=== PATIENT | male | born 1960 | race Caucasian/White ===

== ENCOUNTER 2018-10-16 15:41 | Inpatient (IN) ==
[2018-10-16] MEDS ORDERED: Acetaminophen 325 MG Tablet PO PRN (22:23)
[2018-10-16] MEDS ORDERED: Bisacodyl 10 MG Supp RECTAL PRN (22:23)
[2018-10-16] MEDS: Dextrose 5%/NaCl 0.45% Inj 1,000 ML IV.CONT SCH (23:18)
[2018-10-17] MEDS: Heparin - SQ 10,000 UNITS/ML Vial SQ SCH ×4 (01:01→23:01)
[2018-10-17 06:20] LABS: Baso # (Auto) 0.1 th/mm3 (0.0-0.2); Baso % (Auto) 0.6 % (0.0-2.0); Eos # (Auto) 0.9 th/mm3 (0.0-0.4); Eos % (Auto) 6.1 % (0.0-4.0); Hemoglobin 12.4 gm/dL (13.0-17.0); Lymph # (Auto) 2.4 th/mm3 (1.0-4.8); Lymph % (Auto) 16.2 % (9.0-44.0); Mean Corpuscular HGB Conc 33.4 % (32.0-36.0); Mean Corpuscular Hemoglobin 30.9 pg (27.0-34.0); Mean Corpuscular Volume 92.7 fL (80.0-100.0); Mean Platelet Volume 9.1 fL (7.0-11.0); Mono % (Auto) 6.7 % (0.0-8.0); Neut # (Auto) 10.5 th/mm3 (1.8-7.7); Neut % (Auto) 70.4 % (16.0-70.0); Platelet Count 205 th/mm3 (150-450); Red Blood Count 3.99 mil/mm3 (4.50-5.90); Red Cell Distribution Width 15.8 % (11.6-17.2); White Blood Count 14.9 th/mm3 (4.0-11.0)
[2018-10-17 06:37] LABS: Chloride 109 meq/L (98-107); Potassium 3.7 meq/L (3.5-5.1); Sodium 142 meq/L (136-145)
[2018-10-17 06:39] LABS: Calcium 8.4 mg/dL (8.5-10.1)
[2018-10-17 06:40] LABS: Anion Gap 5 meq/L (5-15); Blood Urea Nitrogen 17 mg/dL (7-18); Carbon Dioxide 27.6 meq/L (21.0-32.0); Glucose,Random 85 mg/dL (74-106)
[2018-10-17 06:43] LABS: Glomerular Filtration Rate Greater Than 89 mL/min (>89)
[2018-10-17] MEDS ORDERED: Lactobacillus Acidophilus/L. Spores Tablet PO SCH (09:00)
[2018-10-17] MEDS ORDERED: AMLODIPINE VALSARTAN PO SCH (09:00)
[2018-10-17] MEDS: amLODIPine 5 MG Tablet PO SCH (09:58)
[2018-10-17] MEDS: Senna/Docusate Sodium 8.6/50 MG Tablet PO SCH ×2 (09:59→10:09)
[2018-10-17] MEDS: diazePAM 5 MG Tablet PO SCH ×2 (09:59→22:58)
[2018-10-17] MEDS: Finasteride 5 MG Tablet PO SCH (09:59)
--- NOTE | 2018-10-17 10:30 | P.HPIM ---
History of Present Illness Primary Care Physician: Waldo Vaughn DO Chief Complaint: Altered mental status change, significant aggressiveness History of Present Illness: 58-year-old man with history of long-standing severe mental retardation was taken to [facility] ED yesterday for evaluation of aggressive behavior per patient's mother. She states over the past several days to a week he has been more aggressive toward people around him and also hurting himself. Patient is unable to provide any history. While in the ED, patient was found to have lung opacities with significant leukocytosis and bandemia for which he was started on IV antibiotics. Apparently, 10 days ago patient has had teeth pulled out by the dentist, and thereafter that he started to become more aggressive. Review of Systems ROS Unobtainable: unobtainable due to mental condition and unobtainable due to mental status PMFSH Social History Social History Substance History: No History of Abuse Second Hand Smoke Exposure: No Smoking Status: Never smoker How Often Do You Have a Drink Containing Alcohol: Never Medications and Allergies Allergies Allergy/AdvReac Type Severity Reaction Status Date / Time erythromycin base Allergy Severe RASH Unverified 04/09/17 19:18 haloperidol Allergy Severe EPS Unverified 04/09/17 19:18 Home Medications Medication Instructions Recorded Confirmed Type L. gasseri-B. bifidum-B longum 1 tab PO HS 10/16/18 10/16/18 History [Probiotic Colon Support] amlodipine-valsartan 1 tab PO DAILY 10/16/18 10/16/18 History cholecalciferol (vitamin D3) 1 tab PO HS 10/16/18 10/16/18 History [Vitamin D3] diazepam 1 tab PO BID 10/16/18 10/16/18 History finasteride 1 tab PO DAILY 10/16/18 10/16/18 History tamsulosin 0.4 mg PO DAILY 10/17/18 10/17/18 History Active Medications: Active Medications Acetaminophen (Tylenol) 650 mg PO Q4H PRN PRN Reason: Temp > 100.4 Al Hydroxide/Mg Hydroxide (Milk Of Magnesia Liq) 30 ml PO Q12H PRN PRN Reason: Mild Constipation Amlodipine Besylate (Norvasc) 5 mg PO DAILY [facility] Last Admin: 10/17/18 09:58 Dose: 5 mg Bisacodyl (Dulcolax Supp) 10 mg RECTAL DAILY PRN PRN Reason: SEVERE CONSITIPATION Diazepam (Valium) 5 mg PO BID [facility] Last Admin: 10/17/18 09:59 Dose: 5 mg Finasteride (Proscar) 5 mg PO DAILY [facility] Last Admin: 10/17/18 09:59 Dose: 5 mg Heparin Sodium (Porcine) (Heparin Inj) 5,000 units SQ Q8H [facility] Last Admin: 10/17/18 05:48 Dose: 5,000 units Dextrose/Sodium Chloride (D5w/1/2 Ns Inj) 1,000 mls @ 75 mls/hr IV.CONT .[id number] [facility] Last Admin: 10/16/18 23:18 Dose: 75 mls/hr Levofloxacin/Dextrose (Levaquin 500 Mg Premix Inj) 500 mg in 100 mls @ 100 mls/ hr IV.SIG Q24H [facility] Lactobacillus Acidophilus (Lactinex) 1 tab PO [facility] Lactulose (Lactulose Liq) 30 ml PO DAILY PRN PRN Reason: SEVERE CONSITIPATION Lorazepam (Ativan Inj) 1 mg IV.PUSH Q4H PRN PRN Reason: AGITATION Last Admin: 10/17/18 01:03 Dose: 1 mg Senna/Docusate Sodium (Silvia-Colace) 1 tab PO DAILY [facility] Last Admin: 10/17/18 10:09 Dose: 1 tab Sennosides (Senokot) 17.2 mg PO Q12H PRN PRN Reason: Moderate Constipation Sodium Chloride (Ns Flush) 2 ml IV.FLUSH BID [facility] Last Admin: 10/17/18 09:58 Dose: 2 ml Sodium Chloride (Ns Flush) 2 ml IV.FLUSH PRN PRN PRN Reason: FLUSH AFTER USING IV ACCESS Valsartan (Diovan) 320 mg PO DAILY [facility] Last Admin: 10/17/18 10:04 Dose: 320 mg Vitamin D (Vitamin D3) 1,000 unit PO HS [facility] Physical Exam Vital signs: Vital Signs 10/16/18 23:24 10/17/18 00:00 10/17/18 00:30 Temperature 97.4 F L Pulse Rate 89 101 H 95 H Respiratory Rate 22 Blood Pressure 118/64 Pulse Oximetry 95 10/17/18 04:00 10/17/18 05:18 10/17/18 08:00 Temperature 97.2 F L 96 F L Pulse Rate 77 77 105 H Respiratory Rate 20 18 20 Blood Pressure 95/57 L 106/84 137/72 Pulse Oximetry 96 96 Intake & Output 10/16/18 10/17/18 10/17/18 18:59 06:59 18:59 Intake Total 50 / 50 120 / 120 Balance 50 / 50 120 / 120 Weight 62 kg Intake: Oral 50 / 50 120 / 120 Other: # Urine Diapers 2 Date of Last Bowel Movement 10/16/18 # Bowel Movements 1 # Incontinent Bowel Movements 1 Narrative: GENERAL: NAD with restraint to upper extremities SKIN: Warm and dry. HEAD: Atraumatic. Normocephalic. EYES: Pupils equal and round. No scleral icterus. No injection or drainage. ENT: No nasal bleeding or discharge. Mucous membranes pink and moist. NECK: Trachea midline. No JVD. CARDIOVASCULAR: Regular rate and rhythm. RESPIRATORY: No accessory muscle use. Clear to auscultation. Breath sounds decreased bilaterally. GASTROINTESTINAL: Abdomen soft, non-tender, nondistended. Hepatic and splenic margins not palpable. MUSCULOSKELETAL: Extremities without clubbing, cyanosis, or edema. No obvious deformities. NEUROLOGICAL: No obvious cranial nerve deficits. Motor grossly within normal limits. Five out of 5 muscle strength in the arms and legs. PSYCHIATRIC: Severe mental retardation Results Labs CBC & Chem 7: 10/17/18 04:45 10/17/18 04:45 Caprini VTE Risk Assessment Caprini VTE Risk Assessment: Moderate/High Risk (score >= 2) Caprini Risk Assessment Model: Point Value = 1 Point Value = 2 Point Value = 3 Point Value = 5 Age 41-60 Minor surgery BMI > 25 kg/m2 Swollen legs Varicose veins or History of unexplained or recurrent spontaneous Oral contraceptives or hormone replacement Sepsis (< 1 month) Serious lung disease, including pneumonia (< 1 month) Abnormal pulmonary function Acute myocardial infarction Congestive heart failure (< 1 month) History of inflammatory bowel disease Medical patient at bed rest Age 61-74 Arthroscopic surgery Major open surgery (> 45 min) Laparoscopic surgery (> 45 min) Malignancy Confined to bed (> 72 hours) Immobilizing plaster cast Central venous access Age >= 75 History of VTE Family history of VTE Factor V Leiden Prothrombin [id number] Lupus anticoagulant Anticardiolipin antibodies Elevated serum homocysteine Heparin-induced thrombocytopenia Other congenital or acquired thrombophilia Stroke (< 1 month) Elective arthroplasty Hip, pelvis, or leg fracture Acute spinal cord injury (< 1 month) Prophylaxis Regimen: Total Risk Factor Score Risk Level Prophylaxis Regimen 0-1 Low Early ambulation 2 Moderate Order ONE of the following: *Sequential Compression Device (SCD) *Heparin 5000 units SQ BID 3-4 Higher Order ONE of the following medications: *Heparin 5000 units SQ TID *Enoxaparin/Lovenox 40 mg SQ daily (WT < 150 kg, CrCl > 30 mL/min) *Enoxaparin/Lovenox 30 mg SQ daily (WT < 150 kg, CrCl > 10-29 mL/min) *Enoxaparin/Lovenox 30 mg SQ BID (WT < 150 kg, CrCl > 30 mL/min) AND/OR *Sequential Compression Device (SCD) 5 or more Highest Order ONE of the following medications: *Heparin 5000 units SQ TID (Preferred with Epidurals) *Enoxaparin/Lovenox 40 mg SQ daily (WT < 150 kg, CrCl > 30 mL/min) *Enoxaparin/Lovenox 30 mg SQ daily (WT < 150 kg, CrCl > 10-29 mL/min) *Enoxaparin/Lovenox 30 mg SQ BID (WT < 150 kg, CrCl > 30 mL/min) AND *Sequential Compression Device (SCD) Assessment and Plan Plan 58-year-old man with Sepsis: Elevated WBC and heart rate greater than 90; source of infection pneumonia from the right lung base Currently on IV Levaquin pending culture report Community-acquired pneumonia Aspiration pneumonia? Secondary to recent dental extractions Chest x-ray noted with finding of minimal parenchymal changes in the right base. Currently on IV Levaquin Monitor culture Keep oxygen saturation above 92% Leukocytosis with bandemia Secondary to above infectious process, continue to monitor Encephalopathy-mostly metabolic secondary to above infectious process Treat as an above Mental retardation Chronic Hypertension, BPH and other chronic medical conditions Continue outpatient medications H&P: Quality VTE Deep Vein Thrombosis/Pulmonary Embolism Present on Admission: No
[2018-10-17] MEDS: Dextrose 5%/NaCl 0.45% Inj 1,000 ML IV.CONT SCH (13:55)
[2018-10-17] MEDS: Levofloxacin 500 mg Premix Inj 500 MG/100 ML PIGGYBACK IV.SIG SCH (17:51)
[2018-10-17] MEDS ORDERED: [UNRECOGNIZED DRUG - OTHER] PO SCH (21:00)
[2018-10-17] MEDS ORDERED: CHOLECALCIFEROL PO SCH (21:00)
[2018-10-17] MEDS: Lactobacillus Acidophilus/L. Spores Tablet PO SCH (22:58)
[2018-10-18] MEDS: Dextrose 5%/NaCl 0.45% Inj 1,000 ML IV.CONT SCH ×2 (05:50→13:52)
[2018-10-18] MEDS: Heparin - SQ 10,000 UNITS/ML Vial SQ SCH ×3 (05:51→22:12)
[2018-10-18] MEDS: diazePAM 5 MG Tablet PO SCH ×2 (09:56→20:56)
[2018-10-18] MEDS: amLODIPine 5 MG Tablet PO SCH (09:56)
--- NOTE | 2018-10-18 11:54 | P.PNIM ---
Subjective Interval history: Follow-up sepsis/community-acquired pneumonia/metabolic encephalopathy October 18, 2018patient seen and examined, alert however nonverbal. Per mom' s and dad's account patient is still not back at his baseline. Afebrile. No acute event overnight. Yesterday a Bhakta was placed secondary to urinary retention. Physical Exam Vital signs: Vital Signs 10/17/18 12:00 10/17/18 16:00 10/17/18 20:00 Temperature 97.3 F L 97 F L 97.7 F Pulse Rate 101 H 91 H 92 H Respiratory Rate 20 20 22 Blood Pressure 96/66 L 130/91 H 130/78 Pulse Oximetry 97 100 92 L 10/17/18 21:44 10/18/18 00:00 10/18/18 00:05 Temperature 98.3 F 97.7 F Pulse Rate 88 83 95 H Respiratory Rate 20 22 Blood Pressure 118/72 106/57 L Pulse Oximetry 96 94 L 10/18/18 08:00 Temperature 97 F L Pulse Rate 85 Respiratory Rate 20 Blood Pressure 114/71 Pulse Oximetry Intake & Output 10/17/18 10/18/18 10/18/18 18:59 06:59 18:59 Intake Total 1400 / 1400 1240 / 1240 Output Total 500 / 500 300 / 300 Balance 900 / 900 940 / 940 Weight 62 kg 62.5 kg Intake: IV 1100 / 1100 1000 / 1000 D5W/1/2 NS Inj 1,000 ML @ 75 1000 / 1000 1000 / 1000 mls/hr IV.CONT .[id number] [facility] Rx# :[id number] Levaquin 500 mg Premix Inj 500 100 / 100 mg In 100 ml @ 100 mls/hr IV. SIG Q24H [facility] Rx#:[id number] Oral 300 / 300 240 / 240 Output: Urine Amount (Catheter) 500 / 500 300 / 300 Indwelling Urethral Catheter 500 / 500 300 / 300 Other: Date of Last Bowel Movement 10/17/18 10/17/18 # Bowel Movements 1 # Incontinent Bowel Movements 1 Weight On Admission 62 kg Narrative: GENERAL: NAD with restraint to upper extremities SKIN: Warm and dry. HEAD: Atraumatic. Normocephalic. EYES: Pupils equal and round. No scleral icterus. No injection or drainage. ENT: No nasal bleeding or discharge. Mucous membranes pink and moist. NECK: Trachea midline. No JVD. CARDIOVASCULAR: Regular rate and rhythm. RESPIRATORY: No accessory muscle use. Clear to auscultation. Breath sounds decreased bilaterally. GASTROINTESTINAL: Abdomen soft, non-tender, nondistended. Hepatic and splenic margins not palpable. MUSCULOSKELETAL: Extremities without clubbing, cyanosis, or edema. No obvious deformities. NEUROLOGICAL: No obvious cranial nerve deficits. Motor grossly within normal limits. Five out of 5 muscle strength in the arms and legs. PSYCHIATRIC: Severe mental retardation Urinary Catheter Management Indwelling Urethral Catheter: Cath placed during this visit: yes Reason for continuing: Acute urinary retention Insertion date: 10/17/18 Insertion time: 17:41 Results Labs CBC & Chem 7: 10/17/18 04:45 10/17/18 04:45 Assessment and Plan Plan 58-year-old man with Sepsis: Elevated WBC and heart rate greater than 90; source of infection pneumonia from the right lung base Currently on IV Levaquin pending culture report Community-acquired pneumonia Aspiration pneumonia? Secondary to recent dental extractions Currently on IV Levaquin Monitor culture Keep oxygen saturation above 90% Leukocytosis with bandemia Secondary to above infectious process, continue to monitor Encephalopathy-mostly metabolic secondary to above infectious process Treat as an above Mental retardation Chronic Hypertension, BPH and other chronic medical conditions Continue outpatient medications Urinary retention Bhakta placed October 17, 2018, continue to monitor output Progress Note: Quality VTE Deep Vein Thrombosis/Pulmonary Embolism Present on Admission: No
--- NOTE | 2018-10-18 14:43 | P.DCO ---
Home Health Nursing Order: Nursing assessment with vital signs Case Management Consult Case Management Consult-Home Health: Yes I have seen patient Storm Cooper on 10/18/18. My clinical findings support the need for the requested home health care services because: Limited mobility due to disease progression, Impaired cognition/judgement and Infection with risk of complications I certify that my clinical findings support that this patient is homebound because: Impaired cognitive ability/safety
[2018-10-18] MEDS: Levofloxacin 500 mg Premix Inj 500 MG/100 ML PIGGYBACK IV.SIG SCH (17:49)
[2018-10-18] MEDS: Lactobacillus Acidophilus/L. Spores Tablet PO SCH (20:56)
[2018-10-19] MEDS: Dextrose 5%/NaCl 0.45% Inj 1,000 ML IV.CONT SCH ×2 (03:50→17:17)
[2018-10-19] MEDS: Heparin - SQ 10,000 UNITS/ML Vial SQ SCH ×3 (06:44→21:49)
[2018-10-19 07:42] LABS: Baso # (Auto) 0.1 th/mm3 (0.0-0.2); Baso % (Auto) 1.2 % (0.0-2.0); Eos # (Auto) 0.7 th/mm3 (0.0-0.4); Eos % (Auto) 8.4 % (0.0-4.0); Hemoglobin 11.6 gm/dL (13.0-17.0); Lymph # (Auto) 2.2 th/mm3 (1.0-4.8); Lymph % (Auto) 24.3 % (9.0-44.0); Mean Corpuscular HGB Conc 33.1 % (32.0-36.0); Mean Corpuscular Hemoglobin 30.5 pg (27.0-34.0); Mean Corpuscular Volume 92.1 fL (80.0-100.0); Mean Platelet Volume 9.3 fL (7.0-11.0); Mono # (Auto) 0.7 th/mm3 (0.0-0.9); Mono % (Auto) 7.4 % (0.0-8.0); Neut # (Auto) 5.2 th/mm3 (1.8-7.7); Neut % (Auto) 58.7 % (16.0-70.0); Platelet Count 185 th/mm3 (150-450); Red Cell Distribution Width 15.1 % (11.6-17.2); White Blood Count 8.9 th/mm3 (4.0-11.0)
[2018-10-19 08:07] LABS: Chloride 111 meq/L (98-107); Potassium 3.3 meq/L (3.5-5.1); Sodium 143 meq/L (136-145)
[2018-10-19 08:11] LABS: Albumin 2.7 g/dL (3.4-5.0); Anion Gap 7 meq/L (5-15); Blood Urea Nitrogen 8 mg/dL (7-18); Carbon Dioxide 24.7 meq/L (21.0-32.0); Glucose,Random 92 mg/dL (74-106)
[2018-10-19 08:14] LABS: Alanine Aminotransferase 30 U/L (12-78); Aspartate Aminotransferase 24 U/L (15-37); Glomerular Filtration Rate Greater Than 89 mL/min (>89)
[2018-10-19 08:16] LABS: Total Protein 5.8 g/dL (6.4-8.2)
[2018-10-19 08:17] LABS: Alkaline Phosphatase 123 U/L (45-117)
[2018-10-19] MEDS: Finasteride 5 MG Tablet PO SCH (08:42)
[2018-10-19] MEDS: amLODIPine 5 MG Tablet PO SCH (08:42)
[2018-10-19] MEDS: diazePAM 5 MG Tablet PO SCH ×2 (08:43→20:19)
--- NOTE | 2018-10-19 10:30 | P.PNIM ---
Subjective Interval history: Follow-up sepsis/community-acquired pneumonia/metabolic encephalopathy/mental retardation October 19, 2018patient seen and examined, per parents account he is back to his baseline, taking more p.o. Afebrile. Physical Exam Vital signs: Vital Signs 10/18/18 12:50 10/18/18 16:00 10/18/18 20:00 Temperature 97.8 F 98.5 F Pulse Rate 93 H 83 Respiratory Rate 20 20 18 Blood Pressure 114/79 112/81 Pulse Oximetry 95 92 L 10/18/18 21:12 10/19/18 00:18 Temperature 96.9 F L 98.1 F Pulse Rate 80 79 Respiratory Rate 24 22 Blood Pressure 100/72 112/73 Pulse Oximetry 95 96 Intake & Output 10/18/18 10/19/18 10/19/18 18:59 06:59 18:59 Intake Total 900 / 900 1100 / 1100 Output Total 700 / 700 1000 / 1000 Balance 200 / 200 100 / 100 Intake: IV 600 / 600 1100 / 1100 D5W/1/2 NS Inj 1,000 ML @ 75 600 / 600 1000 / 1000 mls/hr IV.CONT .[id number] [facility] Rx# :[id number] Levaquin 500 mg Premix Inj 500 100 / 100 mg In 100 ml @ 100 mls/hr IV. SIG Q24H [facility] Rx#:[id number] Oral 300 / 300 Output: Urine Amount (Catheter) 700 / 700 1000 / 1000 Indwelling Urethral Catheter 700 / 700 1000 / 1000 Other: Date of Last Bowel Movement 10/18/18 # Bowel Movements 1 Narrative: GENERAL: NAD SKIN: Warm and dry. HEAD: Atraumatic. Normocephalic. EYES: Pupils equal and round. No scleral icterus. No injection or drainage. ENT: No nasal bleeding or discharge. Mucous membranes pink and moist. NECK: Trachea midline. No JVD. CARDIOVASCULAR: Regular rate and rhythm. RESPIRATORY: No accessory muscle use. Clear to auscultation. Breath sounds decreased bilaterally. GASTROINTESTINAL: Abdomen soft, non-tender, nondistended. Hepatic and splenic margins not palpable. MUSCULOSKELETAL: Extremities without clubbing, cyanosis, or edema. No obvious deformities. NEUROLOGICAL: No obvious cranial nerve deficits. Motor grossly within normal limits. Five out of 5 muscle strength in the arms and legs. PSYCHIATRIC: Severe mental retardation Urinary Catheter Management Indwelling Urethral Catheter: Cath placed during this visit: yes Reason for continuing: Acute urinary retention Insertion date: 10/17/18 Insertion time: 17:41 Results Labs CBC & Chem 7: 10/19/18 06:28 10/19/18 06:28 Assessment and Plan Plan 58-year-old man with Sepsis: Resolved Currently on IV Levaquin pending culture report Community-acquired pneumonia Aspiration pneumonia? Secondary to recent dental extractions Currently on IV Levaquin, will switch to p.o. Levaquin on October 20, 2018 Monitor culture Keep oxygen saturation above 90% Leukocytosis with bandemia-resolved Secondary to above infectious process, continue to monitor Encephalopathy-mostly metabolic secondary to above infectious process and now resolving Treat as an above Remove all four-point restraints Mental retardation Chronic Hypertension, BPH and other chronic medical conditions Continue outpatient medications Urinary retention Bhakta placed October 17, 2018, continue to monitor output DC Bhakta prior to discharge Progress Note: Quality VTE Deep Vein Thrombosis/Pulmonary Embolism Present on Admission: No
[2018-10-19] MEDS: Levofloxacin 500 mg Premix Inj 500 MG/100 ML PIGGYBACK IV.SIG SCH (17:51)
[2018-10-19] MEDS: Lactobacillus Acidophilus/L. Spores Tablet PO SCH (20:19)
[2018-10-20] MEDS: Dextrose 5%/NaCl 0.45% Inj 1,000 ML IV.CONT SCH ×2 (01:05→06:50)
[2018-10-20] MEDS: Heparin - SQ 10,000 UNITS/ML Vial SQ SCH ×3 (05:46→22:33)
[2018-10-20] MEDS: amLODIPine 5 MG Tablet PO SCH (08:12)
[2018-10-20] MEDS: Finasteride 5 MG Tablet PO SCH (08:12)
[2018-10-20] MEDS: diazePAM 5 MG Tablet PO SCH ×2 (09:42→20:03)
--- NOTE | 2018-10-20 11:16 | P.PNIM ---
Subjective Interval history: Follow-up sepsis/community-acquired pneumonia/encephalopathy October 20, 2018patient seen and examined, this morning he was agitated however this resolved. Currently afebrile. He did tolerate p.o. for breakfast. Currently afebrile. Mother by the bedside. Physical Exam Vital signs: Vital Signs 10/19/18 12:00 10/19/18 16:00 10/19/18 20:42 Temperature 98.0 F 98.8 F 97.4 F L Pulse Rate 79 85 94 H Respiratory Rate 19 19 18 Blood Pressure 94/71 L 109/63 115/62 Pulse Oximetry 97 97 96 10/20/18 00:00 10/20/18 08:00 Temperature 97.2 F L 96.5 F L Pulse Rate 68 90 Respiratory Rate 16 22 Blood Pressure 102/58 L 107/66 Pulse Oximetry 98 96 Intake & Output 10/19/18 10/20/18 10/20/18 18:59 06:59 18:59 Intake Total 960 / 960 1100 / 1100 Output Total 1200 / 1200 Balance -240 / -240 1100 / 1100 Weight 62.1 kg Intake: IV 1100 / 1100 D5W/1/2 NS Inj 1,000 ML @ 75 1000 / 1000 mls/hr IV.CONT .[id number] [facility] Rx# :[id number] Levaquin 500 mg Premix Inj 500 100 / 100 mg In 100 ml @ 100 mls/hr IV. SIG Q24H [facility] Rx#:[id number] Oral 960 / 960 Output: Urine Amount (Catheter) 1200 / 1200 Indwelling Urethral Catheter 1200 / 1200 Other: Date of Last Bowel Movement 10/18/18 10/19/18 # Bowel Movements 3 1 Narrative: GENERAL: NAD SKIN: Warm and dry. HEAD: Atraumatic. Normocephalic. EYES: Pupils equal and round. No scleral icterus. No injection or drainage. ENT: No nasal bleeding or discharge. Mucous membranes pink and moist. NECK: Trachea midline. No JVD. CARDIOVASCULAR: Regular rate and rhythm. RESPIRATORY: No accessory muscle use. Clear to auscultation. Breath sounds decreased bilaterally. GASTROINTESTINAL: Abdomen soft, non-tender, nondistended. Hepatic and splenic margins not palpable. MUSCULOSKELETAL: Extremities without clubbing, cyanosis, or edema. No obvious deformities. NEUROLOGICAL: No obvious cranial nerve deficits. Motor grossly within normal limits. Five out of 5 muscle strength in the arms and legs. PSYCHIATRIC: Severe mental retardation Urinary Catheter Management Indwelling Urethral Catheter: Cath placed during this visit: yes Reason for continuing: Hourly intake/output Insertion date: 10/17/18 Insertion time: 17:41 Results Labs CBC & Chem 7: 10/19/18 06:28 10/19/18 06:28 Assessment and Plan Plan 58-year-old man with Sepsis: Resolved Community-acquired pneumonia Aspiration pneumonia? Secondary to recent dental extractions Currently on IV Levaquin, will switch to p.o. Levaquin today October 20, 2018 To remain negative Keep oxygen saturation above 90% Leukocytosis with bandemia-resolved Secondary to above infectious process, continue to monitor Encephalopathy-mostly metabolic secondary to above infectious process and now resolved Mental retardation Chronic Hypertension, BPH and other chronic medical conditions Continue outpatient medications Urinary retention-resolved He was continued on Flomax and finasteride Bhakta placed October 17, 2018, continue to monitor output DC Bhakta prior to discharge Progress Note: Quality VTE Deep Vein Thrombosis/Pulmonary Embolism Present on Admission: No
--- NOTE | 2018-10-20 11:18 | P.DS ---
DS: Providers Date of admission: 10/17/18 10:40 Primary care physician: Waldo Vaughn DO Consults: 10/18/18 08:55 HUB Only Consult Order Routine Consulting Provider: Leoncio Fang Brief History from admission: 58-year-old man with history of long-standing severe mental retardation was taken to [facility] ED yesterday for evaluation of aggressive behavior per patient's mother. She states over the past several days to a week he has been more aggressive toward people around him and also hurting himself. Patient is unable to provide any history. While in the ED, patient was found to have lung opacities with significant leukocytosis and bandemia for which he was started on IV antibiotics. Apparently, 10 days ago patient has had teeth pulled out by the dentist, and thereafter that he started to become more aggressive. DS: Summary She admitted secondary to encephalopathy and diagnosed with sepsis due to pneumonia for which she was started on IV antibiotics. Initially four-point restraints were placed which was eventually removed. Patient's encephalopathy resolved. A Bhakta was placed due to urinary retention and patient was continued on Flomax and finasteride. Leukocytosis resolved. Patient conditions improved and he was able to feed himself. DVT and GI prophylaxis were provided. Prior to discharge, patient conditions improved. Will be discharged on p.o. Levaquin times 5 days. Time Spent with Patient Total time spent providing and/or coordinating discharge services: Quality: VTE Deep Vein Thrombosis/Pulmonary Embolism Present on Admission: No Exam Narrative Exam Narrative: GENERAL: NAD SKIN: Warm and dry. HEAD: Atraumatic. Normocephalic. EYES: Pupils equal and round. No scleral icterus. No injection or drainage. ENT: No nasal bleeding or discharge. Mucous membranes pink and moist. NECK: Trachea midline. No JVD. CARDIOVASCULAR: Regular rate and rhythm. RESPIRATORY: No accessory muscle use. Clear to auscultation. Breath sounds equal bilaterally. GASTROINTESTINAL: Abdomen soft, non-tender, nondistended. Hepatic and splenic margins not palpable. MUSCULOSKELETAL: Extremities without clubbing, cyanosis, or edema. No obvious deformities. NEUROLOGICAL: Awake and alert. No obvious cranial nerve deficits. Motor grossly within normal limits. Five out of 5 muscle strength in the arms and legs. PSYCHIATRIC: Mental retardation Results Procedures completed during hospitalization: None Discharge Plan Discharge Disposition Patient Disposition: 06 Disch W/Home Health Service Discharge Order Discharge Orders: Discharge Order (Routine); Ordered 10/20/18 Ordered By: Garett Martinez Physicians Team ED Provider: Alberto Pond Primary Care Provider: Waldo Vaughn Attending Provider: Garett Martinez Other Providers: Leoncio Fang Rxs /Orders / Referrals /Forms Prescriptions: New levofloxacin [Levaquin] 750 mg tablet 750 mg PO DAILY 5 Days Qty: 5 RF: 0 Continue finasteride 5 mg Tablet 1 tab PO DAILY RF: 0 diazepam 5 mg Tablet 1 tab PO BID RF: 0 cholecalciferol (vitamin D3) [Vitamin D3] 1,000 unit Capsule 1 tab PO HS RF: 0 amlodipine-valsartan 5-320 mg Tablet 1 tab PO DAILY RF: 0 L. gasseri-B. bifidum-B longum [Probiotic Colon Support] 1.5 billion cell Capsule 1 tab PO HS RF: 0 tamsulosin 0.4 mg Capsule 0.4 mg PO DAILY RF: 0 Referrals: Waldo Vaughn DO [Primary Care Provider] - See Instructions Discharge Interventions Interventions: Discharge Planning - Case Management Last Done: 10/18/18 15:03 Status ED Status: Admitted Observation Patient
[2018-10-20] MEDS: Levofloxacin 500 mg Premix Inj 500 MG/100 ML PIGGYBACK IV.SIG SCH (17:44)
[2018-10-20] MEDS: Lactobacillus Acidophilus/L. Spores Tablet PO SCH (20:03)
[2018-10-21] MEDS: Heparin - SQ 10,000 UNITS/ML Vial SQ SCH (06:14)
[2018-10-21] MEDS: diazePAM 5 MG Tablet PO SCH ×2 (07:43→10:38)
[2018-10-21] MEDS: amLODIPine 5 MG Tablet PO SCH ×2 (07:43→10:37)
[2018-10-21] MEDS: Finasteride 5 MG Tablet PO SCH ×2 (07:44→10:38)
[2018-10-21 08:58] VITALS: PULSE 99
[2018-10-21 12:03] VITALS: BP 104/56; RESP 22; TEMP 96.3; O2SAT 96
== END 2018-10-21 13:33 | disposition home health service (06) | DRG 871 ==
LOC: PH3 15:41 → PHEDDLT 15:41
PROVIDERS: ADMIT Hospitalist; ATTEND Hospitalist
CPT/HCPCS: 80048; 80053; 85025; 97110; 97116; 97161; 97167; 97530; J1644; J1956; J2060